=== PATIENT | male | born 1950 | race Caucasian/White ===

== ENCOUNTER → 2017-09-14 | Outpatient (CLI) | payer MEDICARE ==
[~2017-09-14] MED LIST: ASPI-482 PO; CYCL10TA2 PO; FISH1CAP PO; GABA-586 PO; HYDR-2762 PO; IBUP-1027 PO; LOSA1TAB25 PO; MULT-460 PO; OMEP20TA8 PO
--- NOTE | 2017-09-14 15:34 | EKG ---
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
[2017-09-14 16:08] LABS: BASO # 0.1 x10^3/uL (0.0-0.2); BASO % 1 % (0-3); EOS % 4 % (0-3); HEMATOCRIT 43.8 % (39.0-53.0); HEMOGLOBIN 15.2 g/dL (13.0-17.5); LYMPH # 2.2 x10^3/uL (1.0-4.8); LYMPH % 32 % (24-48); MEAN CORPUSCULAR HEMOGLOBIN 34 pg (25-35); MEAN CORPUSCULAR HGB CONC 35 g/dL (31-37); MEAN CORPUSCULAR VOLUME 98 fL (79-100); MONO % 8 % (0-9); NEUT % 55 % (31-73); PLATELET COUNT 232 x10^3/uL (140-400); RED BLOOD COUNT 4.49 x10^6/uL (4.30-5.70); RED CELL DISTRIBUTION WIDTH 13.8 % (11.5-14.5)
[2017-09-14 16:40] LABS: ALBUMIN 3.8 g/dL (3.4-5.0); ALBUMIN/GLOBULIN RATIO 1.1 (1.0-1.7); CALCIUM 8.7 mg/dL (8.5-10.1); CREATININE 1.2 mg/dL (0.7-1.3); GFR 60.8; POTASSIUM 4.1 mmol/L (3.5-5.1); TOTAL BILIRUBIN 0.2 mg/dL (0.2-1.0); TOTAL PROTEIN 7.3 g/dL (6.4-8.2)
== END | disposition home or self-care (01) ==
LOC: SURGPAT 13:25
PROVIDERS: ATTEND Neurological Surgery
DX: Z01.818 Encounter for other preprocedural examination (principal); M48.061 Spinal stenosis, lumbar region without neurogenic claudication; M54.16 Radiculopathy, lumbar region; I10 Essential (primary) hypertension
CPT/HCPCS: 36415; 80053; 85025; 87641; 93005

== ENCOUNTER → 2017-09-24 | Day surgery (SDC) | payer MEDICARE ==
--- NOTE | 2017-09-23 15:04 | PREOP HP ---
DATE OF SERVICE: 09/24/2017 HISTORY OF PRESENT ILLNESS: The patient is a pleasant 67-year-old who has had some difficulty with low back pain and pain which radiates into his posterior thighs and legs. The left side is much more involved than the right. 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 He says he has had episodes of severe back pain intermittently for the last 20 years. He said recently, he was diagnosed with neuropathy involving both of his feet. He rates his pain as a 3/10 now as he is seated but says that the pain can become disabling if he increases his activities. Standing and walking make his pain much worse. As far as pain medicines, he takes Lortab to help with his pain. He has worked formally with physical therapy, but has not improved. He does use a cane to help with ambulation. Except for the problems related to neuropathy, he has not noticed weakness or numbness in his lower extremities. PAST MEDICAL HISTORY: Arthritis and hypertension. PAST SURGICAL HISTORY: Hydrocele repair. FAMILY HISTORY: Cancer, diabetes, hypertension. SOCIAL HISTORY: Retired. . History of alcohol and marijuana abuse. Denies tobacco use. Drinks 4-6 drinks daily. Drinks coffee 6-7 cups per day. ALLERGIES: No known drug allergies. CURRENT MEDICATIONS: Losartan, omeprazole, aspirin, fish oil, men's multivitamin plus, potassium, omeprazole, aspirin, Lortab. REVIEW OF SYSTEMS: A 12-point review of systems was obtained and is noncontributory except for that mentioned above. PHYSICAL EXAMINATION: NEUROSURGERY EXAMINATION: GENERAL APPEARANCE: Alert, pleasant, no acute distress. HEAD: Normocephalic and atraumatic. SKIN: Warm and dry. MUSCULOSKELETAL: Lumbar paraspinal muscle bulk is normal, restricted range of motion of the lumbar spine, [id number] tenderness of lower lumbar spine with palpation, normal range of motion of the lower extremities bilaterally. EXTREMITIES: No clubbing, cyanosis or edema. NEUROLOGIC: Alert and oriented x 3, normal recent and remote memory, strength 5/5 in bilateral lower extremities except for 4/5 dorsiflexion bilaterally, sensory was intact to light touch in the bilateral lower extremities except for stocking glove dysesthesia on both of his feet from just above the ankles distally, reflexes were trace and symmetric in the lower extremities bilaterally, negative straight leg raising bilaterally, slightly shuffling gait. IMAGING: Reviewed. I reviewed a lumbar MRI scan. On that study, he has severe lumbar spinal stenosis present at L4-L5. At L1-L2 on the left, there is also a spur which appeared to protect off the facet, which does encroach on the canal and is associated with moderate stenosis. ASSESSMENT: Spinal stenosis, lumbar region with neurogenic claudication. PLAN: At this point, I believe there are problems at L4-L5 that are primarily responsible for his symptoms. I recommended lumbar microsurgery at that level. I spoke with him about the surgery and the risks. He understands. He would like to go ahead. We will make the arrangements. MIGUEL CARD MD DR: LINDA/lisa JOB#: [id number] / [id number]
[~2017-09-24] VITALS: Ht 182.9 cm; Wt 122.0 kg
[~2017-09-24] MED LIST changes: +BACITRACIN 50,000 UNIT in IV NORMAL SALINE 1000ML BAG 1,000 ML IRR ONE; +BUPIVAC MPF-EPI 0.5%-1:200000 30 ML VIAL. ONE; +DESFLURANE > 120 MINUTES IH ONE; +DEXAMETHASONE SOD PHOS 20 MG/5 ML VIAL. ONE; +GELATIN SPONGE SIZE 100. ONE; +GLYCOPYRROLATE 1 MG/5 ML VIAL. ONE; +HYDROcodone/APAP 7.5/325MG 1 TAB TABLET PO PRN; +HYDROmorphone 2 MG/ML VIAL IV PRN; +IV RINGERS,LACTATED 1000ML 1,000 ML IV SCH; +KETOROLAC 60 MG/2 ML INJ FOR OR. ONE; +LIDOCAINE 1% PF 2 ML VIAL. ID PRN; +LIDOCAINE 2% PF Vial for OR 5 ML VIAL. ONE; +MIDAZOLAM HCL/PF 2 MG/2 ML VIAL. ONE; +MORPHINE SULFATE 2 MG/ML DISP.SYRIN. IV PRN; +ONDANSETRON PF 4 MG/2 ML VIAL. IV PRN; +ONDANSETRON PF 4 MG/2 ML VIAL. ONE; +PHENYLEPHRINE 10 MG/ML VIAL. ONE; +PROCHLORPERAZINE 10 MG/2 ML VIAL. IV PRN; +PROPOFOL 100 ML IV ONE; +PROPOFOL 20 ML IV ONE; +PROPOFOL 50 ML IV ONE; +REMIFENTANIL 1 MG VIAL. IV ONE; +REMIFENTANIL 2 MG VIAL. IV ONE; +ROCURONIUM 50 MG/5 ML VIAL. ONE; +SUCCINYLCHOLINE 200 MG/10 ML VIAL. ONE; +THROMBIN TOPICAL 20,000 UNIT SPRAY.SYRN KIT TP ONE; +VANCOMYCIN 1GM IVPB FOR OMNI 250 ML IV PRN; +fentaNYL PF VIAL 100 MCG/2 ML VIAL IV PRN; +fentaNYL PF VIAL 100 MCG/2 ML VIAL ONE
--- NOTE | 2017-09-24 13:42 | DISCH ---
DISCHARGE INSTRUCTIONS Condition on Discharge Condition on Discharge: Stable Activity After Discharge Activity Instructions for Disc: Avoid exertion Other activity instructions: no driving for a week Bathing Instructions: Shower-keep dressing dry Lifting Instructions after Dis: No heavy lifting, No pulling or pushing, Do not lift >10 pounds Diet after Discharge Additional Diet Restrictions: resume home diet Wound Incision Care Wound/Incision Care: Ice to area for comfort Other wound/incision instructi: may remove dressing in 48 hrs if dry then may shower- no soaking Contacting the after DC Call your doctor for: Concerns you may have Follow-Up Follow up with: Dr. Card's nurse in 2 weeks [phone] MIGUEL CARD MD Sep 24, 2017 13:42
--- NOTE | 2017-09-24 14:18 | OP ---
DATE OF SURGERY: 09/24/2017 PREOPERATIVE DIAGNOSIS: Lumbar spinal stenosis with radiculopathy, L4-L5. POSTOPERATIVE DIAGNOSIS: Lumbar spinal stenosis and herniated disc, L4-L5. OPERATION PERFORMED: Bilateral lumbar microdecompression, L4-L5 with lumbar microdiscectomy, right L4-L5. The operation was done with EMG monitoring, fluoroscopy and microscopic dissection. SURGEON: Israel Card M.D. CORPORATE DIRECTOR OF HUMAN RESOURCES: BLAS Delatorre assisted with the exposure, the microdecompression bilaterally as well as the microdiscectomy and closure. OPERATIVE INDICATIONS: The patient is a very pleasant 67-year-old man who developed intractable back and bilateral leg pain, left greater than right. He failed to improve with conservative measures including physical therapy. On imaging studies, there was very severe stenosis at L4-L5 and I recommended bilateral lumbar microdecompressive surgery at this level to fully decompress the region. He understood the surgery and the risks. He understood the technique of the operation and he wished to go ahead. DESCRIPTION OF PROCEDURE: Following general endotracheal anesthesia, the patient was positioned prone on the Twan table with lumbar region was then prepped and draped in the standard fashion. AGATHA hose and AV impulse boots were applied for DVT prophylaxis. A microscope was draped. Fluoroscopy was draped and brought in the field. Monitoring was established. Vancomycin 1 gram was given. Using fluoroscopic guidance, an incision was made directly over the L4-L5 interspace. I dissected down through skin and subcutaneous tissue and then passed down the left side and placed a Balaton micro disc retractor, brought in the high speed air drill and the microscope. For the remainder of the surgery, used microscopic technique and microdissection. I burred down a generous hemilaminotomy with high speed air drill. I trimmed away very thickened ligamentum flavum. I performed a partial foraminotomy. The surgery was somewhat difficult. It was deep and the amount of degenerative arthritis was very severe. The ligament was thickened and partly calcified and the dura was compressed markedly. This material was peeled away. A partial foraminotomy was performed. The region was very well decompressed. I did palpate the disc and felt that there was no discectomy warranted. This area was firm. I then went to the right side and performed an identical operation on the right side. Again, the ligament was heavily calcified and dura and nerve roots were markedly compressed on this side, though there was bulging disc and I incised the annulus and ligament and then performed a microdiscectomy on pulling back the first few subligamentous fragments, markedly decompressed the region, but he underwent a discectomy on this side and did very well with that. When that was completed, I irrigated copiously, I explored carefully. The dura and roots were very free. I irrigated and then I removed the retractor, obtained hemostasis in the muscle. I irrigated copiously bilaterally, closed the wound in layers after excellent hemostasis. The skin was closed with 4-0 subcuticular stitch. The operation went very well and the patient was awakened uneventfully. I was quite pleased with the surgery. ISRAEL CARD MD DR: LINDA/lisa JOB#: [id number] / [id number] YUNG
[2017-09-24] MEDS: fentaNYL PF VIAL 100 MCG/2 ML VIAL IV PRN ×2 (14:40→15:05)
[2017-09-24 15:51] VITALS: BP 159/85
--- NOTE | 2017-09-28 17:51 | PATHOLOGY ---
PATHOLOGY REPORT * * * * * * * * FINAL DIAGNOSIS: Segments of fibrocartilaginous, fibroadipose, and skeletal muscle tissue and bone, lumbar disc and decompression: - Degenerative changes of fibrocartilaginous tissue. COMMENT: There is no evidence of an acute inflammatory process or malignancy. (JPM:mgr; 09/28/2017) REPORT ELECTRONICALLY SIGNED BY: Marshall Chow M.D. DATE/TIME: 09/28/2017 17:51 * * * * * * * * GROSS PATHOLOGY: Received in formalin labeled "Aly Jeronimo, lumbar disc and decompression" are multiple segments of mccarthy, rubbery, and gritty tissue admixed with bone. The specimen measures 5.2 x 4.8 x 1.1 cm in aggregate dimensions. The tissue is submitted representatively in cassette A1, following decalcification. (CAA; 09/25/2017) INITIAL CPT CODE(S): A; 25737, 45694 Professional services performed [place] [place] [address] Technical services performed by [facility] at [address] [place] [address]. SPECIMEN(S) RECEIVED: A.Lumbar decompression and disc CLINICAL HISTORY: Lumbar stenosis, radiculopathy PATIENT: ALY JERONIMO /AGE: 5 1950 (Age: 67) PATIENT #: [id number] ALT CASE #: SPECIMEN COLLECTION DATE: 09/24/2017 SPECIMEN RECEIVED DATE: 09/24/2017 [facility] - [address] [place] [address] - PHONE: [phone] * * * END OF REPORT * * *
== END | disposition home or self-care (01) ==
LOC: SURG 08:14
PROVIDERS: ATTEND Neurological Surgery
DX: M48.062 Spinal stenosis, lumbar region with neurogenic claudication (principal); M51.16 Intervertebral disc disorders with radiculopathy, lumbar region; I10 Essential (primary) hypertension; M19.90 Unspecified osteoarthritis, unspecified site; Z86.14 Personal history of Methicillin resistant Staphylococcus aureus infection; K21.9 Gastro-esophageal reflux disease without esophagitis; Z98.890 Other specified postprocedural states; Z83.3 Family history of diabetes mellitus; F12.10 Cannabis abuse, uncomplicated
CPT/HCPCS: 63030; 76000; 97162; 97530; G8978; G8979; G8981; J0330; J1100; J1885; J2250; J2405; J2704; J3010; J3370; J3490; J7030; J2001

== ENCOUNTER 2017-10-16 13:41 | Emergency (ER) | payer MEDICARE | END 2017-10-16 15:27 | disposition home or self-care (01) | LOC: ER 13:41 | DX: Z48.01 Encounter for change or removal of surgical wound dressing (principal); T81.31XA Disruption of external operation (surgical) wound, not elsewhere classified, initial encounter; K21.9 Gastro-esophageal reflux disease without esophagitis; I10 Essential (primary) hypertension; F12.10 Cannabis abuse, uncomplicated; Z91.041 Radiographic dye allergy status | CPT/HCPCS: 99281 ==

== ENCOUNTER 2017-12-07 12:54 | Inpatient (IN) | payer MEDICARE ==
[2017-12-07] MEDS ORDERED: fentaNYL PF VIAL 100 MCG/2 ML VIAL IV ×2 (13:15)
[2017-12-07] MEDS ORDERED: CALCIUM CARBONATE 500 MG TAB.CHEW PO ×2 (13:15)
[2017-12-07] MEDS ORDERED: MAGNESIUM HYDROXIDE 2,400 MG/30 ML ORAL.SUSP. PO ×2 (13:15)
[2017-12-07] MEDS ORDERED: MAG HYDROX/ALUMINUM HYD/SIMETH 30 ML ORAL.SUSP PO ×2 (13:15)
[2017-12-07] MEDS ORDERED: diphenhydrAMINE HCL 25 MG CAPSULE PO ×2 (13:15)
[2017-12-07] MEDS ORDERED: ACETAMINOPHEN 325 MG TABLET. PO ×2 (13:15)
[2017-12-07] MEDS ORDERED: diphenhydrAMINE 50 MG/ML VIAL IV ×2 (13:15)
[2017-12-07] MEDS: hydroCHLOROthiazide 12.5 MG CAPSULE PO ×4 (14:00)
[2017-12-07] MEDS: LOSARTAN POTASSIUM 50 MG TABLET. PO ×2 (14:00)
[2017-12-07] MEDS: MULTIVITAMIN with MINERAL TABLET. PO ×2 (14:00)
[2017-12-07] MEDS: PANTOPRAZOLE 40 MG TABLET.DR. PO ×2 (14:00)
[2017-12-07] MEDS: GABAPENTIN 300 MG CAPSULE. PO ×4 (14:00→21:40)
[2017-12-07] MEDS: CYCLOBENZAPRINE 10 MG TABLET. PO ×4 (14:02→21:40)
[2017-12-07 14:10] LABS: ADD MAN DIFF? NO
[2017-12-07 14:19] LABS: BASO # 0.1 x10^3/uL (0.0-0.2); BASO % 1 % (0-3); EOS # 0.3 x10^3/uL (0.0-0.7); EOS % 5 % (0-3); HEMATOCRIT 37.8 % (39.0-53.0); HEMOGLOBIN 13.1 g/dL (13.0-17.5); LYMPH # 2.2 x10^3/uL (1.0-4.8); LYMPH % 38 % (24-48); MEAN CORPUSCULAR HEMOGLOBIN 33 pg (25-35); MEAN CORPUSCULAR HGB CONC 35 g/dL (31-37); MEAN CORPUSCULAR VOLUME 96 fL (79-100); MONO # 0.5 x10^3/uL (0.0-1.1); MONO % 9 % (0-9); NEUT # 2.8 x10^3uL (1.8-7.7); NEUT % 47 % (31-73); PLATELET COUNT 263 x10^3/uL (140-400); RED BLOOD COUNT 3.94 x10^6/uL (4.30-5.70); RED CELL DISTRIBUTION WIDTH 13.4 % (11.5-14.5)
[2017-12-07 14:33] LABS: ANION GAP 7 (6-14); BLOOD UREA NITROGEN 19 mg/dL (8-26); CALCIUM 8.5 mg/dL (8.5-10.1); CARBON DIOXIDE 29 mmol/L (21-32); CHLORIDE 102 mmol/L (98-107); CREATININE 1.1 mg/dL (0.7-1.3); GFR 67.2; GLUCOSE 133 mg/dL (70-99); POTASSIUM 3.6 mmol/L (3.5-5.1); SODIUM 138 mmol/L (136-145)
[2017-12-07] MEDS: DOCUSATE SODIUM 100 MG CAPSULE. PO ×2 (21:40)
[2017-12-07 23:10] LABS: MRSA BY PCR Negative (Negative)
[2017-12-08] MEDS: PANTOPRAZOLE 40 MG TABLET.DR. PO ×2 (05:36)
[2017-12-08] MEDS: LIDOCAINE 1% PF 48 ML, SODIUM BICARBONATE VIAL 12 MEQ in TOTAL VOLUME SYRINGE 60 ML ID ×2 (06:00)
[2017-12-08] MEDS ORDERED: ceFAZolin 2GM PREMIX 2 GM/50 ML BAG IV ×2 (07:00)
[2017-12-08] MEDS ORDERED: THROMBIN TOPICAL 20,000 UNIT SPRAY.SYRN KIT TP ×2 (07:23)
[2017-12-08] MEDS ORDERED: GELATIN SPONGE SIZE 100. ×2 (07:23)
[2017-12-08] MEDS ORDERED: ROCURONIUM 50 MG/5 ML VIAL. ×4 (08:17→09:33)
[2017-12-08] MEDS ORDERED: MIDAZOLAM HCL/PF 2 MG/2 ML VIAL. ×2 (08:20)
[2017-12-08] MEDS ORDERED: fentaNYL PF VIAL 250 MCG/5 ML VIAL ×2 (08:20)
[2017-12-08] MEDS: GABAPENTIN 300 MG CAPSULE. PO ×6 (09:00→19:45)
[2017-12-08] MEDS: CYCLOBENZAPRINE 10 MG TABLET. PO ×6 (09:00→19:45)
[2017-12-08] MEDS ORDERED: NON FORMULARY ITEM (Losartan/Hydrochlorothiazide (Losartan-Hctz 100-12.5 Mg Tab) 1 EACH) PO ×2 (09:00)
[2017-12-08] MEDS: KETOROLAC 60 MG/2 ML INJ FOR OR. ×2 (09:31)
[2017-12-08] MEDS: BACITRACIN 50,000 UNIT in IV NORMAL SALINE 1000ML BAG 1,000 ML IRR (09:31)
[2017-12-08] MEDS: BUPIVAC MPF-EPI 0.5%-1:200000 30 ML VIAL. INJ ×2 (09:31)
[2017-12-08] MEDS: VANCOMYCIN 1 GM in IV DEXTROSE 5% 250 ML IV ×2 (09:48→15:39)
[2017-12-08] MEDS ORDERED: DEXAMETHASONE SOD PHOS 20 MG/5 ML VIAL. ×2 (09:53)
[2017-12-08] MEDS ORDERED: PROPOFOL 20 ML IV ×2 (09:53)
[2017-12-08] MEDS ORDERED: MINERAL OIL/PETROLATUM,WHITE OPHTH OINT 3.5GM TUBE. ×2 (09:53)
[2017-12-08] MEDS ORDERED: ONDANSETRON PF 4 MG/2 ML VIAL. ×2 (09:53)
[2017-12-08] MEDS ORDERED: LIDOCAINE 2% PF Vial for OR 5 ML VIAL. ×2 (09:53)
[2017-12-08] MEDS ORDERED: GLYCOPYRROLATE 1 MG/5 ML VIAL. ×2 (09:54)
[2017-12-08] MEDS ORDERED: NEOSTIGMINE METHYLSULFATE 5 MG/5 ML SYRINGE. ×2 (09:54)
[2017-12-08] MEDS ORDERED: SEVOFLURANE 61 TO 120 MINUTES. IH ×2 (10:20)
[2017-12-08] MEDS ORDERED: LABETALOL 20 MG/4 ML DISP.SYRIN. ×2 (10:26)
[2017-12-08] MEDS: LABETALOL 20 MG/4 ML DISP.SYRIN. IVP ×2 (10:36)
[2017-12-08] MEDS: IV RINGERS,LACTATED 1000ML 1,000 ML IV ×2 (10:59)
[2017-12-08] MEDS ORDERED: LIDOCAINE 1% PF 2 ML VIAL. ID ×2 (11:00)
[2017-12-08] MEDS ORDERED: ONDANSETRON PF 4 MG/2 ML VIAL. IV ×2 (11:00)
[2017-12-08] MEDS ORDERED: fentaNYL PF VIAL 100 MCG/2 ML VIAL IV ×2 (11:00)
[2017-12-08] MEDS: PROCHLORPERAZINE 10 MG/2 ML VIAL. IV ×2 (11:08)
[2017-12-08] MEDS: fentaNYL PF VIAL 100 MCG/2 ML VIAL IV ×4 (11:09→11:28)
[2017-12-08] MEDS: MORPHINE SULFATE 2 MG/ML DISP.SYRIN. IV ×4 (11:30→11:40)
[2017-12-08] MEDS: 0.9 % SODIUM CHLORIDE 10 ML DISP.SYRIN. IV ×2 (11:41)
[2017-12-08] MEDS: DOCUSATE SODIUM 100 MG CAPSULE. PO ×4 (12:32→19:46)
[2017-12-08] MEDS: MULTIVITAMIN with MINERAL TABLET. PO ×2 (12:32)
[2017-12-08] MEDS: hydroCHLOROthiazide 12.5 MG CAPSULE PO ×2 (12:33)
[2017-12-08] MEDS: HYDROcodone/APAP 7.5/325MG 1 TAB TABLET PO ×2 (12:33)
[2017-12-08] MEDS: LOSARTAN POTASSIUM 50 MG TABLET. PO ×2 (12:33)
[2017-12-08] MEDS ORDERED: VANCOMYCIN 1.25 GM in IV DEXTROSE 5% 250 ML IV (13:45)
[2017-12-08] MEDS: MEROPENEM 500 MG in IV NORMAL SALINE 50ML 50 ML IV ×3 (15:08→23:54)
[2017-12-08] MEDS: VANCOMYCIN PER PHARMACY MC ×2 (15:27)
[2017-12-09] MEDS: VANCOMYCIN 1.75 GM in IV DEXTROSE 5 %-0.2 % NACL 500 ML IV ×2 (04:19→16:17)
[2017-12-09] MEDS: MEROPENEM 500 MG in IV NORMAL SALINE 50ML 50 ML IV ×4 (07:23→23:05)
[2017-12-09] MEDS: PANTOPRAZOLE 40 MG TABLET.DR. PO ×2 (07:23)
[2017-12-09 08:02] LABS: C-REACTIVE PROTEIN 5.4 mg/L (0-3.3)
[2017-12-09 08:38] LABS: SEDIMENTATION RATE 28 (0-15)
[2017-12-09] MEDS: CYCLOBENZAPRINE 10 MG TABLET. PO ×6 (09:19→21:01)
[2017-12-09] MEDS: GABAPENTIN 300 MG CAPSULE. PO ×6 (09:19→21:01)
[2017-12-09] MEDS: DOCUSATE SODIUM 100 MG CAPSULE. PO ×4 (09:19→21:01)
[2017-12-09] MEDS: MULTIVITAMIN with MINERAL TABLET. PO ×2 (09:19)
[2017-12-09] MEDS: hydroCHLOROthiazide 12.5 MG CAPSULE PO ×2 (09:21)
[2017-12-09] MEDS: LOSARTAN POTASSIUM 50 MG TABLET. PO ×2 (09:22)
[2017-12-09] MEDS: HYDROcodone/APAP 7.5/325MG 1 TAB TABLET PO ×6 (09:24→23:05)
[2017-12-09] MEDS: VANCOMYCIN PER PHARMACY MC ×4 (11:34→11:40)
[2017-12-09] MEDS: LACTOBACILLUS RHAMNOSUS GG 1 CAPSULE. PO ×4 (13:21→21:01)
[2017-12-10 04:40] LABS: BLOOD UREA NITROGEN 19 mg/dL (8-26)
[2017-12-10 04:40] LABS: CREATININE 1.2 mg/dL (0.7-1.3); GFR 60.8
[2017-12-10 04:48] LABS: VANC TR 19.3 mcg/mL (10.0-20.0)
[2017-12-10] MEDS: VANCOMYCIN 1.75 GM in IV DEXTROSE 5 %-0.2 % NACL 500 ML IV ×2 (05:26→16:08)
[2017-12-10] MEDS: HYDROcodone/APAP 7.5/325MG 1 TAB TABLET PO ×6 (05:27→18:01)
[2017-12-10] MEDS: MEROPENEM 500 MG in IV NORMAL SALINE 50ML 50 ML IV ×4 (05:27→23:40)
[2017-12-10] MEDS: PANTOPRAZOLE 40 MG TABLET.DR. PO ×2 (05:27)
[2017-12-10] MEDS: VANCOMYCIN PER PHARMACY MC ×4 (05:52→11:31)
[2017-12-10] MEDS: MULTIVITAMIN with MINERAL TABLET. PO ×2 (09:21)
[2017-12-10] MEDS: CYCLOBENZAPRINE 10 MG TABLET. PO ×6 (09:21→21:22)
[2017-12-10] MEDS: hydroCHLOROthiazide 12.5 MG CAPSULE PO ×2 (09:21)
[2017-12-10] MEDS: LOSARTAN POTASSIUM 50 MG TABLET. PO ×2 (09:22)
[2017-12-10] MEDS: GABAPENTIN 300 MG CAPSULE. PO ×6 (09:22→21:22)
[2017-12-10] MEDS: DOCUSATE SODIUM 100 MG CAPSULE. PO ×4 (09:22→21:22)
[2017-12-10] MEDS: LACTOBACILLUS RHAMNOSUS GG 1 CAPSULE. PO ×4 (09:22→21:22)
[2017-12-10] MEDS: ZOLPIDEM 5 MG TABLET. PO ×2 (21:22)
[2017-12-11] MEDS: VANCOMYCIN 1.75 GM in IV DEXTROSE 5 %-0.2 % NACL 500 ML IV (04:31)
[2017-12-11 05:55] LABS: ADD MAN DIFF? NO
[2017-12-11 06:01] LABS: BASO # 0.1 x10^3/uL (0.0-0.2); BASO % 1 % (0-3); EOS # 0.2 x10^3/uL (0.0-0.7); EOS % 3 % (0-3); HEMATOCRIT 39.2 % (39.0-53.0); HEMOGLOBIN 13.3 g/dL (13.0-17.5); LYMPH # 2.7 x10^3/uL (1.0-4.8); LYMPH % 39 % (24-48); MEAN CORPUSCULAR HEMOGLOBIN 33 pg (25-35); MEAN CORPUSCULAR HGB CONC 34 g/dL (31-37); MEAN CORPUSCULAR VOLUME 96 fL (79-100); MONO # 0.6 x10^3/uL (0.0-1.1); MONO % 9 % (0-9); NEUT # 3.4 x10^3uL (1.8-7.7); NEUT % 49 % (31-73); PLATELET COUNT 230 x10^3/uL (140-400); RED BLOOD COUNT 4.09 x10^6/uL (4.30-5.70); RED CELL DISTRIBUTION WIDTH 13.3 % (11.5-14.5); WHITE BLOOD COUNT 6.9 x10^3/uL (4.0-11.0)
[2017-12-11] MEDS: PANTOPRAZOLE 40 MG TABLET.DR. PO ×2 (06:09)
[2017-12-11 06:27] LABS: ALBUMIN 3.1 g/dL (3.4-5.0); ALBUMIN/GLOBULIN RATIO 0.8 (1.0-1.7); ALK PHOS 62 U/L (46-116); ALT (SGPT) 37 U/L (16-63); ANION GAP 6 (6-14); AST (SGOT) 20 U/L (15-37); BLOOD UREA NITROGEN 18 mg/dL (8-26); BUN/CREATININE RATIO 15 (6-20); CALCIUM 8.7 mg/dL (8.5-10.1); CARBON DIOXIDE 31 mmol/L (21-32); CHLORIDE 103 mmol/L (98-107); CREATININE 1.2 mg/dL (0.7-1.3); GFR 60.8; GLUCOSE 115 mg/dL (70-99); POTASSIUM 3.6 mmol/L (3.5-5.1); SODIUM 140 mmol/L (136-145); TOTAL BILIRUBIN 0.3 mg/dL (0.2-1.0); TOTAL PROTEIN 7.2 g/dL (6.4-8.2)
[2017-12-11] MEDS: MEROPENEM 500 MG in IV NORMAL SALINE 50ML 50 ML IV ×2 (06:30→12:19)
[2017-12-11] MEDS: GABAPENTIN 300 MG CAPSULE. PO ×6 (09:35→21:40)
[2017-12-11] MEDS: hydroCHLOROthiazide 12.5 MG CAPSULE PO ×2 (09:35)
[2017-12-11] MEDS: DOCUSATE SODIUM 100 MG CAPSULE. PO ×4 (09:35→21:40)
[2017-12-11] MEDS: CYCLOBENZAPRINE 10 MG TABLET. PO ×6 (09:35→21:40)
[2017-12-11] MEDS: LOSARTAN POTASSIUM 50 MG TABLET. PO ×2 (09:35)
[2017-12-11] MEDS: MULTIVITAMIN with MINERAL TABLET. PO ×2 (09:36)
[2017-12-11] MEDS: HYDROcodone/APAP 7.5/325MG 1 TAB TABLET PO ×4 (09:36→18:19)
[2017-12-11] MEDS: LACTOBACILLUS RHAMNOSUS GG 1 CAPSULE. PO ×4 (09:36→21:40)
[2017-12-11] MEDS: CIPROFLOXACIN HCL 250 MG TABLET. PO ×4 (14:55→21:40)
[2017-12-11] MEDS: LINEZOLID 600 MG TABLET PO ×4 (14:55→21:40)
[2017-12-11] MEDS: ZOLPIDEM 5 MG TABLET. PO ×2 (21:40)
[2017-12-12] MEDS: PANTOPRAZOLE 40 MG TABLET.DR. PO ×2 (05:40)
[2017-12-12] MEDS: GABAPENTIN 300 MG CAPSULE. PO ×4 (09:09→13:43)
[2017-12-12] MEDS: DOCUSATE SODIUM 100 MG CAPSULE. PO ×2 (09:09)
[2017-12-12] MEDS: MULTIVITAMIN with MINERAL TABLET. PO ×2 (09:09)
[2017-12-12] MEDS: hydroCHLOROthiazide 12.5 MG CAPSULE PO ×2 (09:10)
[2017-12-12] MEDS: LOSARTAN POTASSIUM 50 MG TABLET. PO ×2 (09:10)
[2017-12-12] MEDS: CYCLOBENZAPRINE 10 MG TABLET. PO ×4 (09:13→13:43)
[2017-12-12] MEDS: LACTOBACILLUS RHAMNOSUS GG 1 CAPSULE. PO ×2 (09:17)
[2017-12-12] MEDS: LINEZOLID 600 MG TABLET PO ×2 (09:17)
[2017-12-12] MEDS: CIPROFLOXACIN HCL 250 MG TABLET. PO ×2 (09:18)
[2017-12-12] MEDS: HYDROcodone/APAP 7.5/325MG 1 TAB TABLET PO ×2 (09:22)
== END 2017-12-12 17:24 | disposition home or self-care (01) | DRG 857 ==
LOC: 4 NORTH 12:54
PROC: 009U0ZZ Drainage of Spinal Canal, Open Approach (ICD-10-PCS; principal; 2017-12-08 08:52)
DX: T81.4XXA Infection following a procedure, initial encounter (principal); L02.212 Cutaneous abscess of back [any part, except buttock and flank]; G62.9 Polyneuropathy, unspecified; M48.061 Spinal stenosis, lumbar region without neurogenic claudication; E78.5 Hyperlipidemia, unspecified; F12.90 Cannabis use, unspecified, uncomplicated; I10 Essential (primary) hypertension; K21.9 Gastro-esophageal reflux disease without esophagitis; Y83.8 Other surgical procedures as the cause of abnormal reaction of the patient, or of later complication, without mention of misadventure at the time of the procedure; R73.03 Prediabetes; Z80.42 Family history of malignant neoplasm of prostate; Z80.51 Family history of malignant neoplasm of kidney; Z82.49 Family history of ischemic heart disease and other diseases of the circulatory system; Z83.3 Family history of diabetes mellitus; Y92.89 Other specified places as the place of occurrence of the external cause
CPT/HCPCS: 36415; 72131; 80048; 80053; 80202; 82565; 84520; 85025; 85651; 86140; 87040; 87071; 87075; 87102; 87116; 87205; 87641; J0690; J0780; J1100; J1885; J2185; J2250; J2270; J2405; J2704; J2710; J3010; J3370; J3490; J7030; J7120

== ENCOUNTER → 2018-01-19 | Outpatient (CLI) | payer MEDICARE ==
[2018-01-19] MEDS: GADOBUTROL 10 MMOL/10 ML VIAL IV (14:05)
== END | disposition home or self-care (01) ==
LOC: KCIC MRI 12:50
DX: M48.061 Spinal stenosis, lumbar region without neurogenic claudication (principal); M51.36 Other intervertebral disc degeneration, lumbar region; M25.78 Osteophyte, vertebrae
CPT/HCPCS: 72158; 82565; A9585